=== PATIENT | male | born 1950 | race Caucasian/White ===

== ENCOUNTER 2017-01-11 17:17 | Emergency (ER) | payer MEDICARE ==
[~2017-01-11] VITALS: Ht 182.9 cm; Wt 63.5 kg
[2017-01-11] VITALS (16 sets, daily range): BP systolic 46–82; BP diastolic 34–59
[2017-01-11] MEDS ORDERED: Ipratropium 0.02% Inh Soln 2.5ml UD ONE (17:20)
[2017-01-11] MEDS ORDERED: Albuterol ud Inhalation ONE (17:20)
[2017-01-11] MEDS: Albuterol ud Inhalation HHN SCH ×6 (17:25→19:42)
[2017-01-11] MEDS: Ipratropium 0.02% Inh Soln 2.5ml UD HHN SCH ×3 (17:25→19:40)
[2017-01-11] MEDS ORDERED: Solu-MEDROL 125mg Inj IVP ONE (17:30)
[2017-01-11 18:18] LABS: MEAN CORPUSCULAR HEMOGLOBIN 23.3 PG (27.0-31.0); MEAN CORPUSCULAR HGB CONC 29.9 G/DL (32.0-36.0); MEAN CORPUSCULAR VOLUME 78 FL (80-99); MEAN PLATELET VOLUME 5.1 FL (6.5-10.1); PLATELET COUNT 500 K/UL (150-450); RED BLOOD COUNT 1.77 M/UL (4.70-6.10); RED CELL DISTRIBUTION WIDTH 20.2 % (11.6-14.8)
[2017-01-11 18:21] LABS: REFLEX LACTIC ACID YES OR NO YES
[2017-01-11 18:24] LABS: TROPONIN I 0.68 ng/mL (<=0.30)
[2017-01-11 18:26] LABS: WHITE BLOOD COUNT 33.2 K/UL (4.8-10.8)
[2017-01-11 18:38] LABS: ALANINE AMINOTRANSFERASE 16 U/L (3-41); ALBUMIN/GLOBULIN RATIO 0.8 (1.0-2.7); ANION GAP 31 (5-15); ASPARTATE AMINO TRANSFERASE 24 U/L (5-40); CALCIUM 8.5 mg/dL (8.6-10.2); CARBON DIOXIDE 10 mEQ/L (20-30); CHLORIDE 82 mEQ/L (98-107); CREATININE 1.3 mg/dL (0.7-1.2); GLOMERULAR FILTRATION RATE 55.1 mL/min (>60); HEMOLYSIS 0; POTASSIUM 5.4 mEQ/L (3.4-4.9); SODIUM 123 mEQ/L (135-145); TOTAL PROTEIN 5.7 g/dL (6.6-8.7)
[2017-01-11 18:49] LABS: CKMB 13.8 ng/mL (< 6.7)
[2017-01-11] MEDS ORDERED: Piperacillin/Tazobactam 3.375 GM in NS 110 ML IVPB ONE (19:00)
[2017-01-11] MEDS ORDERED: Zosyn 3.375gm inj ONE (19:08)
[2017-01-11] MEDS ORDERED: Heparin 25,000u/D5W 500ml 500 ML IV SCH (19:15)
[2017-01-11 19:25] LABS: INR 1.4 (0.9-1.1); PROTHROMBIN TIME 14.8 SEC (9.30-11.50)
[2017-01-11 19:42] LABS: APPEARANCE,URINE CLEAR; KETONES,URINE NEGATIVE (NEGATIVE); LEUKOCYTE ESTERASE ,URINE 1+ (NEGATIVE); NITRITE,URINE NEGATIVE (NEGATIVE); PH,URINE 6 (4.5-8.0); PROTEIN,URINE NEGATIVE (NEGATIVE); UROBILINOGEN,URINE NORMAL MG/DL (0.0-1.0)
[2017-01-11] MEDS ORDERED: CULTURELLE1 EACH ORAL (19:44)
[2017-01-11] MEDS ORDERED: AMBIEN5 MG ORAL (19:44)
[2017-01-11] MEDS ORDERED: ASCORBIC ACID500 MG ORAL (19:44)
[2017-01-11] MEDS ORDERED: CARVEDILOL3.125 MG ORAL (19:44)
[2017-01-11] MEDS ORDERED: EPOGEN4000 UNIT/ SUBQ (19:44)
[2017-01-11] MEDS ORDERED: ATIVAN1 MG ORAL (19:44)
[2017-01-11] MEDS ORDERED: FERROUS SULFAT325 MG ORAL ×3 (19:44→20:07)
[2017-01-11] MEDS ORDERED: AMLODIPINE BESYL5 MG ORAL (19:44)
[2017-01-11] MEDS ORDERED: ERIVEDGE150 MG PO (19:44)
[2017-01-11] MEDS ORDERED: DUONEB 0.5-3(2.53 ML HHN (19:44)
[2017-01-11] MEDS ORDERED: LAMICTAL100 MG ORAL ×2 (19:49→20:09)
[2017-01-11] MEDS ORDERED: LISINOPRIL10 MG ORAL (19:49)
[2017-01-11] MEDS ORDERED: FOLIC ACID1 MG ORAL (19:49)
[2017-01-11] MEDS ORDERED: OXYCODONE-ACET1 EAC3 ORAL ×2 (19:49→20:12)
[2017-01-11] MEDS ORDERED: LACTULOSE20 GM/301 ORAL ×2 (19:49→20:08)
[2017-01-11 19:54] LABS: ABG PCO2 38.7 mmHg (35.0-45.0)
[2017-01-11 19:55] LABS: ABG ALLEN TEST POSITIVE
[2017-01-11 19:56] LABS: BACTERIA,URINE FEW /HPF; RBC,URINE 0-2 /HPF (0 - 0); WBC,URINE 0-2 /HPF (0 - 0)
[2017-01-11] MEDS: DOPamine 400mg/250ml 250 ML IV SCH (20:01)
[2017-01-11] MEDS ORDERED: LORAZEPAM1 MG ORAL (20:03)
[2017-01-11] MEDS ORDERED: DUONEB 0.5-3(2.53 ML INH (20:05)
[2017-01-11] MEDS ORDERED: MULTIVITAMINS1 EAC2 ORAL (20:11)
[2017-01-11] MEDS ORDERED: RISPERDAL2 MG ORAL (20:13)
[2017-01-11] MEDS ORDERED: ACETAMINOPHEN325 M1 ORAL (20:14)
[2017-01-11] MEDS ORDERED: VITAMIN B COMP1 EAC2 ORAL (20:15)
[2017-01-11] MEDS ORDERED: Levophed 4mg/4mL Inj IV ONE (20:36)
--- NOTE | 2017-01-11 21:09 | Emergency Room Report ---
History of Present Illness General Chief Complaint: Dyspnea/Respdistress Source: Medical Record Present Illness HPI 66-year-old male brought to ED for evaluation. Per EMS patient has been complaining of shortness of breath x1 day. In distress. Initial BP low. Per EMS patient has been complaining of symptoms for one day now. Patient resides in [facility]. Denies chest pain or shortness of breath. Denies fevers or chills. History of COPD. Patient had a recent excision of a basal cell carcinoma on his face. bandages and dressings wrapped around the head. No other aggravating or relieving factors. Denies any other associated symptoms Allergies: Coded Allergies: No Known Allergies (Unverified , 01/11/17) Patient History Past Medical History: DM, HTN, COPD, seizures, psych hx Past Surgical History: none Pertinent Family History: none Social History: Denies: alcohol use, drug use, smoking Immunizations: UTD Reviewed Nursing Documentation: PMH: Agreed, PSxH: Agreed Nursing Documentation-PMH Hx Hypertension: Yes Hx COPD: Yes Hx Diabetes: Yes Hx Cancer: Yes - Basal cell carcinoma-face, History Of Psychiatric Problem: Yes - Bipolar, Unspecified psychosis Hx Seizures: Yes Review of Systems All Other Systems: negative except mentioned in HPI Physical Exam Vital Signs Date Time Temp Pulse Resp B/P Pulse Ox O2 Delivery O2 Flow Rate FiO2 01/11/17 17:09 143 30 90/64 84 Non-Rebreather 15.0 01/11/17 17:25 21 01/11/17 18:00 99.5 Sp02 EP Interpretation: reviewed, normal General Appearance: moderate distress, lethargic, thin Head: normocephalic Eyes: bilateral eye PERRL, bilateral eye normal inspection ENT: normal ENT inspection Neck: normal inspection Respiratory: decreased breath sounds, accessory muscle use, crackles Cardiovascular #1: tachycardia Gastrointestinal: normal inspection Rectal: deferred Genitourinary: no CVA tenderness Musculoskeletal: normal inspection Neurologic: other - lethargic Psychiatric: other - lethargic Skin: normal inspection Lymphatic: normal inspection Procedures Critical Care Time Critical Care Time i. I feel this is a highly complex case requiring extensive working including EKG/Rhythm strip, Xray/CT/US, Blood/urine lab work, repeat exams while in ED, and administration of strong opiates/narcotics for pain control, admission to hospital or close patient follow up. Total time: 30 min bedside evaluation and treatment excludes procedures (EKG). Reason for critical care: Cardiac arrest, respiratory arrest. Anemic. Septic shock. NSTEMI Possible complications: hypotension, hypertension, ME, shock, arrhythmias, metabolic acidosis, end organ damage, respiratory failure. Interventions: Labs, EKG, chest x-ray, nebulizer treatment. Intubation. Central line. ACLS. O- blood. Dopamine drip. Levophed drip. bicarbonate drip. IVFs. Abx. Heparin drip Course: Patient brought in for respiratory distress. History of COPD. Nebulizer treatments started. Patient started becoming more lethargic, bradycardic. Patient coded. Lost pulses. Intubated. Central line placed. PVC greater than 30, troponins elevated,, hemoglobin very low. Pressors started. Abx given. O negative blood started. bicarbonate drip started. Consultations: nursing staff, EMS, family Performed by: Dr Banda Tolerated well condition = critical j. because of unstable vital signs this patient had a condition that could potentially threaten life or limb. I feel this is a critical patient who required my full attention while patient was considered critical. Total Critical Care Time excluding procedures was greater than 35 minutes Central Line Central Line : Consent: Emergent Central Line Lumen: triple Maximal Sterile Barrier Tech: no cap, no mask, no sterile gown, no sterile gloves, no large sterile sheet, no hand hygiene, no chlorhexidine prep Central Line Postion: femoral (R) Central Line Post Position: sutured, good blood return Attempts: One Patient Tolerated: Well Complications: None CPR/Code Blue CPR/Code Blue Narrative Patient became bradycardic, apneic. Lost pulses. Initial rhythm PEA. Compression started. I intubated the patient. Central line placed. Given calcium and bicarbonate. Given epinephrine. After multiple rounds of ACLS and compressions patient regained pulses. Patient is very hypotensive. Levophed and Dopamine drips started. Abx given. Patient in critical condition Intubation Intubation : Consent: Emergent Intubation Method: orotracheal Tube Size (cm): 7.5 Breath Sounds after Intubation: equal Intubation Complications: no complications Post Intubation Xray: Yes Attempts: One Patient Tolerated: Well Complications: None Medical Decision Making Diagnostic Impression: Primary Impression: Septic shock Additional Impressions: Cardiac arrest COPD exacerbation Anemia Qualified Codes: D64.9 - Anemia, unspecified NSTEMI (non-ST elevated myocardial infarction) ER Course 66-year-old male presents ED in respiratory distress. History of COPD. Differential-pneumonia, pneumothorax, COPD patient placed on stretcher. After initial history and physical I ordered labs , IV fluids, EKG, chest x-ray, breathing treatments Patient became apneic while on nebulizer treatment, he came bradycardic. Decision was made to intubate the patient. Before patient to be intubated patient lost pulses. CODE BLUE started I intubated the patient. Central line placed. Chest compressions started. Given epinephrine. Given calcium and bicarbonate. After multiple rounds of compressions and medications patient regained pulses. Patient very hypotensive Labs reviewed-WBC greater than 30, lactic acid greater than 14, troponins positive. Hemoglobin [address] depressions in lateral leads Patient started on pressors. Antibiotics given. IV fluids. Patient started on heparin drip. PH shows profound acidosis. Bicarbonate drip started. Patient very hypotensive. Coags and type and screen sent. O- blood initially started. Patient is critical, prognosis is poor. Patient will be admitted to Dr. Elliott Diagnosis - septic shock, cardiac arrest, COPD exacerbation, anemia, NSTEMI admitted to ICU in critical condition Labs Test 01/11/17 17:25 01/11/17 18:55 01/11/17 19:00 01/11/17 19:30 White Blood Count 33.2 K/UL (4.8-10.8) Red Blood Count 1.77 M/UL (4.70-6.10) Hemoglobin 4.1 G/DL (14.2-18.0) Hematocrit 13.8 % (42.0-52.0) Mean Corpuscular Volume 78 FL (80-99) Mean Corpuscular Hemoglobin 23.3 PG (27.0-31.0) Mean Corpuscular Hemoglobin Concent 29.9 G/DL (32.0-36.0) Red Cell Distribution Width 20.2 % (11.6-14.8) Platelet Count 500 K/UL (150-450) Mean Platelet Volume 5.1 FL (6.5-10.1) Neutrophils (%) (Auto) % (45.0-75.0) Lymphocytes (%) (Auto) % (20.0-45.0) Monocytes (%) (Auto) % (1.0-10.0) Eosinophils (%) (Auto) % (0.0-3.0) Basophils (%) (Auto) % (0.0-2.0) Sodium Level 123 mEQ/L (135-145) Potassium Level 5.4 mEQ/L (3.4-4.9) Chloride Level 82 mEQ/L (98-107) Carbon Dioxide Level 10 mEQ/L (20-30) Anion Gap 31 (5-15) Blood Urea Nitrogen 16 mg/dL (7-23) Creatinine 1.3 mg/dL (0.7-1.2) Estimat Glomerular Filtration Rate 55.1 mL/min (>60) Glucose Level 257 mg/dL (74-106) Lactic Acid Level 14.50 mmol/L (0.66-2.22) 16.40 mmol/L (0.66-2.22) Calcium Level 8.5 mg/dL (8.6-10.2) Total Bilirubin < 0.2 mg/dL (0.0-1.2) Aspartate Amino Transf (AST/SGOT) 24 U/L (5-40) Alanine Aminotransferase (ALT/SGPT) 16 U/L (3-41) Alkaline Phosphatase 90 U/L (40-129) Total Creatine Kinase 90 U/L (38-174) Creatine Kinase MB 13.8 ng/mL (< 6.7) Creatine Kinase MB Relative Index 15.3 Troponin I 0.68 ng/mL (<=0.30) Pro-B-Type Natriuretic Peptide 4605 pg/mL (0-125) Total Protein 5.7 g/dL (6.6-8.7) Albumin 2.6 g/dL (3.5-5.2) Globulin 3.1 g/dL Albumin/Globulin Ratio 0.8 (1.0-2.7) Prothrombin Time 14.8 SEC (9.30-11.50) Prothromb Time International Ratio 1.4 (0.9-1.1) Activated Partial Thromboplast Time 68 SEC (23-33) Urine Color Pale yellow Urine Appearance Clear Urine pH 6 (4.5-8.0) Urine Specific [place] 1.015 (1.005-1.035) Urine Protein Negative (NEGATIVE) Urine Glucose (UA) Negative (NEGATIVE) Urine Ketones Negative (NEGATIVE) Urine Occult Blood Negative (NEGATIVE) Urine Nitrite Negative (NEGATIVE) Urine Bilirubin Negative (NEGATIVE) Urine Urobilinogen Normal MG/DL (0.0-1.0) Urine Leukocyte Esterase 1+ (NEGATIVE) Urine RBC 0-2 /HPF (0 - 0) Urine WBC 0-2 /HPF (0 - 0) Urine Squamous Epithelial Cells None /LPF (NONE/OCC) Urine Bacteria Few /HPF (NONE) Urine Fine Granular Casts 2-4 /LPF (NONE) Arterial Blood pH 6.907 (7.350-7.450) Arterial Blood Partial Pressure CO2 38.7 mmHg (35.0-45.0) Arterial Blood Partial Pressure O2 136.2 mmHg (75.0-100.0) Arterial Blood HCO3 7.5 mmol/L (22.0-26.0) Arterial Blood Oxygen Saturation 96.0 % (92.0-98.0) Arterial Blood Base Excess -23.0 Fabrizio Test Positive EKG Diagnostic Results Rate: normal Rhythm: NSR ST Segments: other - ST depressions in lateral leads ASA given to the pt in ED: No Rhythm Strip Diag. Results EP Interpretation: yes Rhythm: NSR, no PVC's, no ectopy Chest X-Ray Diagnostic Results EP Interpretation: Yes Findings: no consolidation, no effusion, no pneumothorax, no acute cardiopulmonary disease Number of Views: 1 Last Vital Signs Date Time Temp Pulse Resp B/P Pulse Ox O2 Delivery O2 Flow Rate FiO2 01/11/17 20:38 59/42 01/11/17 20:15 99.3 70 17 93 Mechanical Ventilator 15.0 60 Status: improved Disposition: ADMITTED INPATIENT Condition: Critical Referrals: GARY ELLIOTT (PCP) CATIE BANDA M.D. January 11, 2017 21:09
[2017-01-11 21:32] LABS: BAND NEUTROPHILS % (MANUAL) 2 % (0-8); EOSINOPHILS % (MANUAL) 1 % (0-3); LYMPHOCYTES % (MANUAL) 16 % (20-45); NEUTROPHILS % (MANUAL) 73 % (45-75); TOTAL CELLS COUNTED 100
[2017-01-11 21:33] LABS: ANISOCYTOSIS 2+; BASOPHILS % (MANUAL) 0 % (0-2); HYPOCHROMASIA 3+; MICROCYTES 1+; PLATELET ESTIMATE INCREASED; PLATELET MORPHOLOGY NORMAL
[2017-01-11] MEDS ORDERED: Phenylephrine 100 MG in D5W 240 ML IV SCH (22:00)
[2017-01-11] MEDS ORDERED: D5W w/Sodium Bicarb 3 amps 1000 ml IV SCH ×2 (22:00)
[2017-01-11] MEDS ORDERED: DuoNeb 0.5-3(2.5)mg/3ml neb HHN PRN (22:15)
[2017-01-11] MEDS ORDERED: LORazepam Inj 2mg/ml 1ml IV PRN (22:15)
[2017-01-11] MEDS ORDERED: Morphine Sulfate 4mg/ml Inj IVP PRN (22:15)
[2017-01-11] MEDS ORDERED: Miralax 17gm pkt ORAL PRN (22:15)
[2017-01-11] MEDS ORDERED: Phenylephrine 10mg/ml 5ml vial IV ONE (22:22)
[2017-01-11] MEDS ORDERED: Vancomycin 1 GM in D5W 275 ML IV SCH (23:45)
[2017-01-11] MEDS ORDERED: Amikacin 1,000 MG in NS 110 ML IV SCH (23:45)
[2017-01-11] MEDS ORDERED: Ertapenem 1 GM in NS 55 ML IV SCH (23:45)
[2017-01-12] VITALS (8 sets, daily range): BP systolic 0–120; BP diastolic 0–92
[2017-01-12] MEDS: DOPamine 400mg/250ml 250 ML IV SCH (00:41)
[2017-01-12] MEDS ORDERED: Pantoprazole Inj IVP SCH (09:00)
[2017-01-12] MEDS ORDERED: Heparin 5000 units/ml inj SUBQ SCH (09:00)
--- NOTE | 2017-01-12 09:50 | Diagnostic Imaging Report ---
Indications: Intubation Technique: Portable AP chest at 2133 Findings: Comparison: 1730 Endotracheal tube has been placed 4 cm above julia. Defibrillator patches overlie the midline lower thorax. Elevation of the apparent right hemidiaphragm persists. Diffuse bilateral interstitial infiltrates have developed. No pleural abnormality identified. IMPRESSION: Endotracheal tube in good position Development of bilateral interstitial infiltrates compatible with pulmonary edema, may be cardiogenic or noncardiogenic in nature Placement of defibrillator patches
--- NOTE | 2017-01-12 12:39 | Diagnostic Imaging Report ---
Indications: Shortness of breath Technique: Portable AP chest Findings: Comparison: None Linear and ill-defined patchy opacities with intermixed lucencies left lung apex. Right lung clear. Right hemidiaphragm elevated. Left hemidiaphragm multilobulated. Heart size, pulmonary vasculature within normal limits. No pleural abnormalities. Aortic arch calcified. IMPRESSION: No evidence of acute cardiopulmonary disease Left lung apex densities or lucencies, nonspecific, likely chronic inflammatory in nature with suspected bullae/blebs Aortosclerosis Elevation right hemidiaphragm, nonspecific, acuity indeterminate
--- NOTE | 2017-01-12 15:59 | Cardiology Report ---
APPROVED REPORT EKG Measurement Heart [id number] MI [id number] Normal sinus rhythm Marked ST abnormality, possible inferior subendocardial injury Abnormal ECG
[2017-01-13 13:05] LABS: OTHERS PATHOLOGIST COMMENT
== END 2017-01-12 02:09 | disposition expired ==
LOC: EDBD 17:17 → EMR 18:05 → EDBEDREQSVC 18:50 → EDBEDREQ 18:50 → EMR 01-12 02:09
DX: A41.9 Sepsis, unspecified organism (principal); R65.21 Severe sepsis with septic shock; I46.9 Cardiac arrest, cause unspecified; J44.1 Chronic obstructive pulmonary disease with (acute) exacerbation; D64.9 Anemia, unspecified; I21.4 Non-ST elevation (NSTEMI) myocardial infarction; E11.9 Type 2 diabetes mellitus without complications; Z85.828 Personal history of other malignant neoplasm of skin; I10 Essential (primary) hypertension; F31.9 Bipolar disorder, unspecified
CPT/HCPCS: 31500; 36415; 36600; 71010; 80053; 81003; 82550; 82553; 82803; 82962; 83605; 83880; 84484; 85007; 85025; 85610; 85730; 86850; 86900; 86901; 86920; 87040; 92950; 93005; 94002; 94640; 94664; 96374; 96375; 99291; J1265; J1644; J2370; J2543; J2930; J3490; J7070; P9016